=== PATIENT | male | born 1990 | race American Indian/Alaskan Native ===

== ENCOUNTER 2016-07-16 19:34 | Emergency (ER) | payer OTHER ==
[2016-07-16 20:31] VITALS: BP 118/79
[2016-07-16] MEDS ORDERED: MOTRIN PO ONE (21:05)
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
== END 2016-07-16 21:43 | disposition home or self-care (01) ==
LOC: ED 19:34
DX: M79.605 Pain in left leg (principal); G89.29 Other chronic pain; F17.200 Nicotine dependence, unspecified, uncomplicated; F12.10 Cannabis abuse, uncomplicated
CPT/HCPCS: 99282

== ENCOUNTER 2016-07-23 22:11 | Emergency (ER) | payer OTHER ==
[2016-07-24 04:00] VITALS: BP 127/68
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
[2016-07-24] MEDS ORDERED: NORCO 5/325 PO ONE (04:29)
== END 2016-07-24 05:38 | disposition home or self-care (01) ==
LOC: ED 22:11
DX: M79.652 Pain in left thigh (principal); G89.29 Other chronic pain; F17.200 Nicotine dependence, unspecified, uncomplicated
CPT/HCPCS: 99282